=== PATIENT | female | born 1990 | race African-American/Black ===

== ENCOUNTER 2017-06-15 18:43 | Emergency (ER) | payer OTHER ==
[2017-06-15 20:01] LABS: Bilirubin Negative (Negative); Blood, Urine Large (Negative); Glucose, Urine (Dipstick) Negative (Negative); Ketone, Urine Negative (Negative); Nitrite Negative (Negative); Protein, Urine (Dipstick) 100 mg/dL (Neg-Trace)
[2017-06-15 20:19] LABS: Bacteria/HPF None Seen HPF (None Seen); Hyaline Casts/LPF 0-3 HYALINE CAST LPF (0-3 Hyaline); RBC/HPF GREATER THAN 50-TNTC HPF (0-3)
--- NOTE | 2017-06-15 21:54 | ULT ---
TRANSABDOMINAL AND TRANSVAGINAL PELVIC ULTRASOUND: Indication: First trimester with vaginal bleeding. Beta HCGs reported as less than 1.2. Technique: Grayscale, color doppler and vascular duplex with spectral analysis was performed of the pelvis via transabdominal and transvaginal approach. FINDINGS: No intrauterine gestational sac is identified. There is a small Nabothian cyst within the cervix. Th e uterus measures 7.2 x 4.1 x 4.9 cm and the endometrial stripe measures 9.1 mm. The right ovary measures 2.9 x 2.7 x 3.7 cm. Left ovary measures 3.0 x 2.0 x 2.9 cm. There is normal flow to both ovaries. No free fluid is identified. IMPRESSION: No intrauterine gestation demonstrated. In light of the patient's history of vaginal bleeding, findi ngs are suspicious for missed . Early and ectopic cannot be entirely exc luded but are felt less likely given the history. Would recommend continued follow up. POS: TE
[2017-06-15] MEDS ORDERED: Ibuprofen 800 MG TAB ONE (22:29)
== END 2017-06-15 22:37 | disposition home or self-care (01) ==
LOC: ERS 18:43
DX: O02.1 Missed abortion (principal); I10 Essential (primary) hypertension; E11.9 Type 2 diabetes mellitus without complications; Z79.84 Long term (current) use of oral hypoglycemic drugs; Z79.899 Other long term (current) drug therapy; Z3A.01 Less than 8 weeks gestation of pregnancy
CPT/HCPCS: 36415; 76856; 81003; 81015; 81025; 84702; 84703; 86850; 86900; 86901

== ENCOUNTER 2020-04-13 09:26 | Emergency (ER) | payer OTHER, SELFPAY ==
[2020-04-13] MEDS ORDERED: Dexamethasone 10 MG/ML VIAL ONE (09:54)
[2020-04-13 11:01] LABS: BHCG - Serum Negative (NEGATIVE); Pregs Control Background? CLEAR/WHITE (CLR/WHITE); Pregs Control Bar Appear? YES (CONTROL BAR)
[2020-04-13] MEDS ORDERED: Ketorolac Tromethamine 30 MG/ML VIAL ONE (11:10)
[2020-04-14 12:54] LABS: SARS-CoV-2 MS2 Positive; SARS-CoV-2 N Gene Negative; SARS-CoV-2 S Gene Negative; SARS-CoV-2 by NAA Not Detected (NotDetected); SARS-CoV-2 orf1ab Negative
== END 2020-04-13 12:47 | disposition home or self-care (01) ==
LOC: ERS 09:26
DX: B34.9 Viral infection, unspecified (principal); Z20.828 Contact with and (suspected) exposure to other viral communicable diseases; E11.9 Type 2 diabetes mellitus without complications; I10 Essential (primary) hypertension; Z79.84 Long term (current) use of oral hypoglycemic drugs
CPT/HCPCS: 36415; 84703; 87635; 93005; 96374; 96375; J1100; J1885; U0003

== ENCOUNTER 2020-07-12 11:43 | Emergency (ER) | payer OTHER, SELFPAY ==
[2020-07-12 16:56] LABS: SARS-CoV-2 MS2 Positive; SARS-CoV-2 N Gene Negative; SARS-CoV-2 S Gene Negative; SARS-CoV-2 by NAA Not Detected (NotDetected); SARS-CoV-2 orf1ab Negative
== END 2020-07-12 12:08 | disposition home or self-care (01) ==
LOC: ERS 11:43
DX: R07.89 Other chest pain (principal); I10 Essential (primary) hypertension; E11.9 Type 2 diabetes mellitus without complications; E28.2 Polycystic ovarian syndrome; Z79.84 Long term (current) use of oral hypoglycemic drugs; Z20.828 Contact with and (suspected) exposure to other viral communicable diseases
CPT/HCPCS: 87635; 99284; U0003